=== PATIENT | female | born 1955 | race American Indian/Alaskan Native ===

== ENCOUNTER 2017-03-29 01:16 | Inpatient (IN) | payer OTHER ==
[~2017-03-29] VITALS: Ht 162.6 cm; Wt 68.1 kg
[2017-03-29] MEDS ORDERED: SODIUM CHLORIDE 0.9% 1,000ML IVBOLUS ONE (02:00)
[2017-03-29] MEDS ORDERED: AZITHROMYCIN 500 MG in SODIUM CHLORIDE 0.9% 250 ML IVPB ONE (02:00)
[2017-03-29 02:11] LABS: DIFF TOTAL CELLS COUNTED 100 CELL DIFF
[2017-03-29 02:20] LABS: BLOOD UREA NITROGEN 7 mg/dL (7-18)
[2017-03-29] MEDS ORDERED: FLUT1DIS IH (02:23)
[2017-03-29] MEDS ORDERED: FURO20TA3 PO (02:24)
[2017-03-29 02:26] LABS: IS PT STATUS REG ER OR PRE ER? YES
[2017-03-29] MEDS ORDERED: HYDR-3138 PO (02:26)
[2017-03-29] MEDS ORDERED: LORA10TA62 PO (02:27)
[2017-03-29] MEDS ORDERED: LISI5TAB7 PO (02:27)
[2017-03-29] MEDS ORDERED: MECL-76 PO (02:28)
[2017-03-29] MEDS ORDERED: OMEP-110 PO (02:28)
[2017-03-29] MEDS ORDERED: SPIR25TA3 PO (02:29)
[2017-03-29] MEDS: ALBUTEROL SULFATE 2.5 MG/3 ML NPPB SCH (02:32)
[2017-03-29 02:51] LABS: VERIFY COUNTS? YES
[2017-03-29] MEDS ORDERED: ONDANSETRON 2MG/ML, 2ML IVPush PRN ×2 (03:30→05:00)
[2017-03-29] MEDS ORDERED: SODIUM CHLORIDE 0.9% 1,000 ML IV ONE (03:30)
[2017-03-29] MEDS ORDERED: PROMETHAZINE 25 MG/ML, 1ML IM PRN (05:00)
[2017-03-29] MEDS ORDERED: ACETAMINOPHEN 325 MG TABLET PO PRN (05:00)
[2017-03-29 05:33] VITALS: BP 118/75
[2017-03-29 05:45] LABS: IS PT STATUS REG ER OR PRE ER? NO
[2017-03-29] MEDS: CEFTRIAXONE 1,000 MG in SODIUM CHLORIDE 0.9% 50 ML IV SCH (06:04)
[2017-03-29] MEDS: NICOTINE 21 MG/24 HR PATCH.TD24 TD SCH (06:05)
[2017-03-29] MEDS: ENOXAPARIN 40 MG/0.4 ML SQ SCH (06:05)
[2017-03-29] MEDS: methylPREDNISolone SOD SUCC 125 MG/2 ML IVPush SCH ×3 (06:05→19:51)
[2017-03-29] MEDS ORDERED: OMNIPAQUE 350 MG/ML, 100ML BOTTLE ONE (06:28)
[2017-03-29 09:05] VITALS: BP 130/86
[2017-03-29] MEDS: LISINOPRIL 5 MG TABLET PO SCH (09:13)
[2017-03-29 12:03] LABS: IS PT STATUS REG ER OR PRE ER? YES
[2017-03-29] MEDS: FLUTICASONE/VILANTEROL 100-25MCG/INH INH SCH (13:33)
[2017-03-29 14:30] VITALS: BP 99/63
[2017-03-29] MEDS: DOXYCYCLINE 100 MG in DEXTROSE 5% 250 ML IV SCH (18:01)
[2017-03-29 18:30] VITALS: BP 111/75
[2017-03-29] MEDS: ATORVASTATIN 20 MG TABLET PO SCH (19:50)
[2017-03-29] MEDS ORDERED: TEMAZEPAM 15 MG CAPSULE ONE (21:18)
[2017-03-29] MEDS ORDERED: TEMAZEPAM 15 MG CAPSULE PO PRN (21:30)
[2017-03-29] MEDS: ALBUTEROL/IPRATROPIUM 2.5MG/0.5MG, 3 ML NPPB PRN (22:12)
[2017-03-30] MEDS: methylPREDNISolone SOD SUCC 125 MG/2 ML IVPush SCH ×4 (01:52→20:45)
[2017-03-30 01:59] VITALS: BP 102/64
[2017-03-30] MEDS: CEFTRIAXONE 1,000 MG in SODIUM CHLORIDE 0.9% 50 ML IV SCH (04:56)
[2017-03-30] MEDS: ENOXAPARIN 40 MG/0.4 ML SQ SCH (04:56)
[2017-03-30 05:15] LABS: IS PT STATUS REG ER OR PRE ER? NO
[2017-03-30 05:22] LABS: ASPARTATE AMINO TRANSFERASE 18 U/L (15-37); BLOOD UREA NITROGEN 7 mg/dL (7-18)
[2017-03-30] MEDS: DOXYCYCLINE 100 MG in DEXTROSE 5% 250 ML IV SCH ×2 (05:42→18:25)
[2017-03-30] MEDS: ASPIRIN 81 MG TABLET EC PO SCH (05:42)
[2017-03-30 09:06] VITALS: BP 112/69
[2017-03-30] MEDS ORDERED: REGADENOSON 0.4 MG/5 ML SYRINGE ONE (10:32)
[2017-03-30] MEDS: ALBUTEROL/IPRATROPIUM 2.5MG/0.5MG, 3 ML NPPB PRN (11:12)
[2017-03-30] MEDS: LISINOPRIL 5 MG TABLET PO SCH (12:38)
[2017-03-30] MEDS: FLUTICASONE/VILANTEROL 100-25MCG/INH INH SCH (12:39)
[2017-03-30] MEDS: NICOTINE 21 MG/24 HR PATCH.TD24 TD SCH (12:42)
[2017-03-30 17:04] VITALS: BP 138/83
[2017-03-30 20:00] VITALS: BP 122/80
[2017-03-30] MEDS: ATORVASTATIN 20 MG TABLET PO SCH (20:44)
[2017-03-31] MEDS: methylPREDNISolone SOD SUCC 125 MG/2 ML IVPush SCH ×3 (01:28→13:30)
[2017-03-31 02:00] VITALS: BP 119/76
[2017-03-31] MEDS: CEFTRIAXONE 1,000 MG in SODIUM CHLORIDE 0.9% 50 ML IV SCH (04:47)
[2017-03-31] MEDS: ENOXAPARIN 40 MG/0.4 ML SQ SCH (04:47)
[2017-03-31] MEDS: DOXYCYCLINE 100 MG in DEXTROSE 5% 250 ML IV SCH (06:04)
[2017-03-31] MEDS: ASPIRIN 81 MG TABLET EC PO SCH (06:04)
[2017-03-31 07:48] VITALS: BP 131/80
[2017-03-31] MEDS: FLUTICASONE/VILANTEROL 100-25MCG/INH INH SCH (08:40)
[2017-03-31] MEDS: NICOTINE 21 MG/24 HR PATCH.TD24 TD SCH (08:41)
[2017-03-31] MEDS: LISINOPRIL 5 MG TABLET PO SCH (08:41)
[2017-03-31] MEDS: ALBUTEROL/IPRATROPIUM 2.5MG/0.5MG, 3 ML NPPB PRN (11:05)
[2017-03-31 12:19] VITALS: BP 131/79
[2017-03-31] MEDS ORDERED: CARV3.1212 PO (12:22)
[2017-03-31] MEDS ORDERED: METH4TAB2 PO (12:22)
[2017-03-31] MEDS ORDERED: ASPI-621 PO (12:22)
[2017-03-31] MEDS ORDERED: CEFD300C37 PO (12:22)
[2017-03-31] MEDS ORDERED: DOXY100C2 PO (12:22)
[2017-03-31] MEDS ORDERED: ATOR20TA9 PO (12:28)
[2017-03-31] MEDS ORDERED: PNEUMOCOCCAL 23 VACCINE IM-VACC ONE (14:00)
== END 2017-03-31 14:50 | disposition home or self-care (01) | DRG 871 ==
LOC: ED 02:30 → EDIP 03:45 → 5SO 05:24 → DCLOUNGE 03-31 14:25
PROVIDERS: ADMIT Internal Medicine
PROC: 5A09357 Assistance with Respiratory Ventilation, Less than 24 Consecutive Hours, Continuous Positive Airway Pressure (ICD-10-PCS; principal; 2017-03-29)
DX: A41.9 Sepsis, unspecified organism (principal); J18.9 Pneumonia, unspecified organism; J96.21 Acute and chronic respiratory failure with hypoxia; I21.4 Non-ST elevation (NSTEMI) myocardial infarction; E43 Unspecified severe protein-calorie malnutrition; J44.0 Chronic obstructive pulmonary disease with (acute) lower respiratory infection; J44.1 Chronic obstructive pulmonary disease with (acute) exacerbation; E87.1 Hypo-osmolality and hyponatremia; I50.42 Chronic combined systolic (congestive) and diastolic (congestive) heart failure; I11.0 Hypertensive heart disease with heart failure; F17.210 Nicotine dependence, cigarettes, uncomplicated; G47.30 Sleep apnea, unspecified; D63.8 Anemia in other chronic diseases classified elsewhere; E78.5 Hyperlipidemia, unspecified; Z99.81 Dependence on supplemental oxygen; Z87.11 Personal history of peptic ulcer disease; Z90.710 Acquired absence of both cervix and uterus
CPT/HCPCS: 36415; 71010; 71275; 78452; 80048; 80053; 80061; 82040; 83735; 84100; 84443; 84484; 85025; 87040; 87070; 87205; 90732; 93005; 93017; 93306; 94640; 99285; J0456; J0696; J1650; J2785; J7060; J7613; J7620; Q9967; A9502; C9898; J2930; J7030; J7050